=== PATIENT | female | born 2000 | race Caucasian/White ===

== ENCOUNTER 2022-12-24 15:26 | Emergency (ER) | payer MEDICAID, SELFPAY ==
[2022-12-24 15:27] VITALS: BP 154/72; PULSE 85; RESP 18; TEMP 36.7; O2SAT 99; BMI 38.7
--- NOTE | 2022-12-24 15:39 | EDS_ITS ---
HPI <MIRIAM Feliz - Last Filed: 12/24/22 16:43> History of Present Illness Chief Complaint: Lower Extremity Injury Narrative Narrative: 22-year-old female presents with right knee pain. She injured her knee 3 years ago and the orthopedic doctor told her she tore her MCL. She completed physical therapy but it still hurts whenever she play sports or does something active. She played beach volleyball a week ago and since then its been hurting and feels like her kneecap slips in and out of place. It feels tight when she walks. She has no weakness numbness or tingling. She scheduled an orthopedic appointment in 1 month. PFSH <MIRIAM Feliz - Last Filed: 12/24/22 16:43> [facility] Home Medications naproxen 500 mg tablet (Naprosyn) 500 mg PO BID PRN pain #20 tabs 12/24/22 [Rx Last Taken Unknown] Allergy/AdvReac Type Severity Reaction Status Date / Time No Known Allergies Allergy Verified 12/24/22 15:29 Social History Smoking Status: Light Smoker (<10/day) ROS <MIRIAM Feliz - Last Filed: 12/24/22 16:43> ROS ED ROS Narrative Constitutional: Negative for fever, chills, malaise. Neuro: Negative for motor/sensory dysfunction. Skin: Negative for rash. Musc: Positive for right knee pain, swelling. EXAM <MIRIAM Feliz - Last Filed: 12/24/22 16:43> Physical Exam Narrative Exam Narrative: CONST: Patient sitting in no acute distress. EYES: Normal inspection. NECK: Normal inspection. RESP: No respiratory distress, CTAB. CVS: Regular rate and rhythm, no murmur, no gallop. SKIN: Color normal, no rash, warm, dry, intact. EXTREMITIES: Small right knee effusion. Patellar feels midline. No reproducible tenderness, no defects of the quadriceps or patellar tendon. Normal extension. No laxity with anterior/posterior, or varus or valgus stress. Negative modified Nikita's. Normal strength and sensation, 2+ PT pulse. NEURO: Oriented x4. PSYCH: Normal affect. Const Vital Signs: 12/24/22 15:27 Temperature 98.1 F Temperature Source Temporal Pulse Rate 85 Respiratory Rate 18 Blood Pressure 154/72 H Blood Pressure Mean 99 Pulse Ox 99 Oxygen Delivery Method Room Air <Dr. Kyle Kirby MD - Last Filed: 12/24/22 21:50> Physical Exam Const Vital Signs: 12/24/22 15:27 Temperature 98.1 F Temperature Source Temporal Pulse Rate 85 Respiratory Rate 18 Blood Pressure 154/72 H Blood Pressure Mean 99 Pulse Ox 99 Oxygen Delivery Method Room Air [facility] <MIRIAM Feliz - Last Filed: 12/24/22 16:43> [facility] Narrative Medical decision making narrative: History gathered from: Patient and family member at bedside Patient is having acute on chronic right knee pain after playing volleyball last week. No direct trauma or fall. She has a small knee effusion but no significant reproducible bony tenderness. Normal extension. No laxity with anterior/posterior varus or valgus stress. Neurovascularly intact. X-ray shows no acute fracture or dislocation. She was given an Orion wrap, naproxen prescription, and recommended to use ice and avoid painful activities. She has orthopedic follow-up scheduled and was discharged in stable condition. Differential: Knee sprain, ligamentous or meniscal tear, fracture Radiography Diagnostic Testing: Clinical Impression(s) from Imaging Studies Knee X-Ray 12/24/22 16:00 IMPRESSION: There is a small knee joint effusion. Electronically Signed: Griselda Holloway MD at 16:25 EDT , ED attending interpretation of right knee x-ray shows no acute fracture or dislocation. <Dr. Kyle Kirby MD - Last Filed: 12/24/22 21:50> [facility] Radiography Diagnostic Testing: Clinical Impression(s) from Imaging Studies Knee X-Ray 12/24/22 16:00 IMPRESSION: There is a small knee joint effusion. Electronically Signed: Griselda Holloway MD at 16:25 EDT , Treatment and Re-Evaluation Comments:: Seen and evaluated independently and in conjunction with physician mortgage loan assistant. Agree with notes above unless documented otherwise. Chronic issues in the right knee gradually worse after playing volleyball for an extended period of time. Able to walk on it but with pain. Mild swelling if any. Exam: Good range of motion limited at extremes of flexion with regards to the right knee, she can almost completely straighten it out and her extensor mechanism is intact. Minor if any effusion, no bony tenderness, all ligaments are intact with short endpoints and no significant discomfort or laxity on stressing. X-ray 4 views of the right knee on my interpretation negative for any acute including fracture or dislocation or significant effusion. Patient reassured, given an Orion wrap, advised with regards anti-inflammatories close outpatient orthopedic follow-up, certainly meniscal injuries in the differential here, less likely to be a ligament rupture or sprain. Discharge Plan Triage Chief Complaint: Lower Extremity Injury ED Midlevel Provider: Milena Love ED Provider: Kyle Kirby Dx/Rx/DC Orders Clinical Impression: Knee pain, right Instructions: ED Knee Pain of Uncertain Cause Prescriptions: New naproxen [Naprosyn] 500 mg tablet 500 mg PO BID PRN (Reason: pain) Qty: 20 0RF Primary Care Provider: Eugenio Brizuela Referrals: Eugenio Brizuela MD [Primary Care Provider] - Activity Restrictions/Additional Instructions: Ice, avoid painful activity, and follow-up with an orthopedic doctor. Disposition Disposition: Home, Self Care Discharge Date/Time: 12/24/22 16:48
[2022-12-24] MEDS: Naproxen 250 MG Tablet 500 MG PO (15:45)
--- NOTE | 2022-12-24 16:00 | RAD_ITS ---
INDICATION: Injury/Pain EXAMINATION/TECHNIQUE: X-RAY - RIGHT XR Knee Complete 4 Views or More 4 VIEWS COMPARISON: FINDINGS: SOFT TISSUES: No soft tissue swelling or gas. No radiopaque foreign body. BONES/JOINTS: There is a small knee joint effusion. No acute fracture or subluxation.. Normal alignment. Preservation of the joint space.. No sclerotic or destructive changes observed. RAD/Knee 4 or More Views IMPRESSION: There is a small knee joint effusion. Electronically Signed: Griselda Holloway MD at 16:25 EDT ,
== END 2022-12-24 16:48 | disposition home or self-care (01) ==
PROVIDERS: Emergency Provider Emergency Medicine; PCP Family Medicine; Visit Provider Emergency Medicine
DX: M25.561 Pain in right knee (principal); F17.200 Nicotine dependence, unspecified, uncomplicated
CPT/HCPCS: 73564; 99283